=== PATIENT | male | born 1985 | race Caucasian/White ===

== ENCOUNTER 2022-10-26 22:47 | Inpatient (IN) ==
--- NOTE | 2022-10-26 23:26 | Emergency Department Note ---
Impression & Plan Suicidal ideation Admit to [facility] ED Provider Note NAME: HAYLEE RAMIREZ AGE: 36 SEX: M ARRIVES VIA: Walk-In INFORMANT: Patient ED PROVIDER(S): Marie Ma DO CHIEF COMPLAINT: Suicidal ideation PLAN: Disposition: Admit to [facility]. Condition: Fair MEDICAL DECISION MAKING: This is a 36-year-old male patient who presents to the emergency department with suicidal ideation. Patient is unsure whether or not he would spontaneously act on these thoughts. He states that he feels fed up. The patient was medically cleared here in the emergency department and met with the ED psychiatric case resolution specialist. He is willing to admit himself voluntarily. The patient was evaluated by staff from [facility] and they would accept him onto their unit. Triage Nursing notes reviewed and agree with them. Prior medical records reviewed including previous emergency department visits where he was medically cleared to go to the [facility] Vital Signs: reviewed and unremarkable Differential diagnosis: Suicidal ideation, mood disorder, thought disorder, drug abuse Diagnostics interpreted by me: Laboratory studies: See below HPI: 36/M arrives for evaluation of suicidal ideation. The patient describes being" fed up with life." Patient states that he has had a very stressful week he has not having intermittent thoughts of suicide and does not feel that he will not spontaneously act upon them. Although, he does not have an active plan. He has had previous mental health admissions to [facility] and at the [facility]. The patient stopped taking his medications shortly after discharge in April from [facility]. The patient has not had any alcohol for the past 2 and half years. He does use marijuana but states that his card recently. 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 HOME MEDICATIONS:None ALLERGIES:None VITALS:See Below PHYSICAL EXAMINATION: HEENT: Head - normocephalic and atraumatic. Pupils are equal, round, and reactive to light. Extraocular eye muscles are intact, and sclera are anicteric. Nose - moist nasal mucosa without discharge. Mouth - moist buccal mucosa. Oropharynx is nonerythematous and there is no tonsillar exudate or edema noted. Neck: Supple; no cervical lymphadenopathy Heart: Regular rate and rhythm. There is a normal S1 and S2 with no murmurs, clicks, or gallops appreciated. Lungs: Clear to auscultation bilaterally with no wheezes, rales, or rhonchi. Abdomen: Soft, completely nontender, nondistended, with good bowel sounds. There are no palpable pulsatile masses or hepatosplenomegaly. There is no guarding, rigidity, or rebound noted. Extremities: No evidence of cyanosis, clubbing, or edema. There are easily palpable peripheral pulses. Skin: warm and dry with good turgor and no rashes. Psych: The patient is tearful at times and appears depressed. He does admit to suicidal ideation with no specific plan. He denies homicidal ideation. ED COURSE: Times/Reassessments: 2300: Patient was evaluated in room A-5. A complete history and physical was performed. Laboratory studies were drawn as above. He was felt to be medically cleared. Patient was evaluated by the ED psychiatric case resolution specialist. He meets criteria for inpatient psychiatric care. He is voluntary. He was evaluated by staff from [facility] They will admit him to their unit. Marie Ma, DO Past Med/Surg History Medical History No pertinent past medical history Surgical History History of repair of laceration R eye region Social History Smoking Status: Unknown if ever smoked Preferred Language: Tajik Communication Ability: Effective Mercury Cracking Tester Required: No Beliefs That Will Affect Care: None Feels Safe at Home: Yes Gender Identity: Male Assistive Devices: None Allergies Allergies Allergy/AdvReac Type Severity Reaction Status Date / Time No Known Allergies Allergy Unverified 10/26/22 23:00 Home Meds Home Medications Medication Instructions Recorded Confirmed escitalopram oxalate 10 mg tablet 10 mg PO 1XD 10/26/22 10/26/22 Results & Data (ED) Vital Signs Vital Signs - 24 hr 10/26/22 22:48 Temperature 36.8 C Temperature Source Temporal Artery Scan Pulse Rate 67 Pulse Rhythm Regular Pulse Strength Normal Respiratory Rate 20 Respiratory Effort / Characteristics Non-Labored Spontaneous Respiratory Depth Normal Blood Pressure 127/88 Blood Pressure Mean 101 Blood Pressure Position Sitting Pulse Oximetry 96 Oxygen Delivery Method Room Air Sepsis Recent Fever Within 48 Hours No Sepsis New/Unexplained Change in Mental Status N/A Sepsis Action Taken by Nursing No Action Required Laboratory Data 10/26/22 23:11 10/26/22 23:11 Lab Results 10/26/22 10/26/22 10/26/22 Range/Units 23:00 23:07 23:11 WBC 8.45 (4.8-10.8) K/ul RBC 4.50 L (4.70-6.10) M/uL Hgb 14.9 (14.0-18.0) g/dl Hct 42.8 (42.0-52.0) % MCV 95.1 (80.0-100.0) fL MCH 33.1 (25.0-34.0) pg MCHC 34.8 (32.0-36.0) g/dL RDW Std Deviation 43.8 (36.4-46.3) fL RDW Coeff of Jocelyn 12.5 (11.5-14.5) % Plt Count 244 (130-400) K/uL MPV 11.2 (9.4-12.4) fL Immature Gran % (Auto) 0.2 % Neut % (Auto) 66.6 % Lymph % (Auto) 22.6 % Pepin % (Auto) 4.9 % Eos % (Auto) 5.3 % Baso % (Auto) 0.4 % Neut # (Auto) 5.63 (1.40-6.50) K/uL Lymph # (Auto) 1.91 (1.2-3.4) K/uL Pepin # (Auto) 0.41 (0.11-0.59) K/uL Eos # (Auto) 0.45 (0-0.50) K/uL Baso # (Auto) 0.03 (0-0.2) K/uL Immature Gran # (Auto) 0.02 (0.01-0.20) K/uL Sodium (136-145) mmol/L Potassium (3.5-5.1) mmol/L Chloride (98-107) mmol/L Carbon Dioxide (21-32) mmol/L Anion Gap (3-11) BUN (6-23) mg/dl Creatinine (0.6-1.4) mg/dl Est Cr Clr Drug Dosing ml/min Est GFR ( Amer) ml/min Est GFR (Non-Af Amer) ml/min BUN/Creatinine Ratio (10-20) Glucose (70-99(Fasting)) mg/dl Calcium (8.6-10.3) mg/dl Total Bilirubin (0.2-1.0) mg/dl AST (13-39) U/L ALT (7-52) U/L Alkaline Phosphatase (34-104) U/L Total Protein (6.0-8.3) gm/dl Albumin (3.4-5.0) gm/dl Globulin (2.5-4.0) gm/dl Albumin/Globulin Ratio (0.9-2) TSH (0.300-4.500) uIu/ml Urine Color Dark Yellow Urine Appearance Clear (Clear) Urine pH 5.5 (4.5-7.5) Ur Specific [place] 1.022 (1.000-1.030) Urine Protein Negative (Negative) Urine Glucose (UA) Negative (Negative) Urine Ketones Negative (Negative) Urine Blood Negative (Negative) Urine Nitrite Negative (Negative) Urine Bilirubin Negative (Negative) Urine Urobilinogen Negative (Negative) Ur Leukocyte Esterase Negative (Negative) Salicylates (3.0-30) mg/dl Urine Opiates Screen Neg (Neg) Ur Methadone, Qual Neg (Neg) Acetaminophen (10-30) ug/ml Urine Barbiturates Neg (Neg) Ur Phencyclidine (PCP) Neg (Neg) U Amphetamin/Meth Scrn Neg (Neg) MDMA (Ecstasy) Screen Neg (Neg) U Benzodiazepines Scrn Neg (Neg) Ur Cocaine Metabolite Neg (Neg) U Marijuana (THC) Screen Pos H (Neg) Ethyl Alcohol mg/dL (<10.0) mg/dl 10/26/22 10/26/22 10/26/22 Range/Units 23:11 23:11 23:11 WBC (4.8-10.8) K/ul RBC (4.70-6.10) M/uL Hgb (14.0-18.0) g/dl Hct (42.0-52.0) % MCV (80.0-100.0) fL MCH (25.0-34.0) pg MCHC (32.0-36.0) g/dL RDW Std Deviation (36.4-46.3) fL RDW Coeff of Jocelyn (11.5-14.5) % Plt Count (130-400) K/uL MPV (9.4-12.4) fL Immature Gran % (Auto) % Neut % (Auto) % Lymph % (Auto) % Pepin % (Auto) % Eos % (Auto) % Baso % (Auto) % Neut # (Auto) (1.40-6.50) K/uL Lymph # (Auto) (1.2-3.4) K/uL Pepin # (Auto) (0.11-0.59) K/uL Eos # (Auto) (0-0.50) K/uL Baso # (Auto) (0-0.2) K/uL Immature Gran # (Auto) (0.01-0.20) K/uL Sodium 137 (136-145) mmol/L Potassium 3.9 (3.5-5.1) mmol/L Chloride 107 (98-107) mmol/L Carbon Dioxide 23 (21-32) mmol/L Anion Gap 7 (3-11) BUN 20 (6-23) mg/dl Creatinine 0.76 (0.6-1.4) mg/dl Est Cr Clr Drug Dosing 138.1 ml/min Est GFR ( Amer) 134.1 ml/min Est GFR (Non-Af Amer) 115.7 ml/min BUN/Creatinine Ratio 26.3 H (10-20) Glucose 92 (70-99(Fasting)) mg/dl Calcium 9.4 (8.6-10.3) mg/dl Total Bilirubin 0.9 (0.2-1.0) mg/dl AST 18 (13-39) U/L ALT 15 (7-52) U/L Alkaline Phosphatase 60 (34-104) U/L Total Protein 7.0 (6.0-8.3) gm/dl Albumin 4.4 (3.4-5.0) gm/dl Globulin 2.6 (2.5-4.0) gm/dl Albumin/Globulin Ratio 1.7 (0.9-2) TSH 1.605 (0.300-4.500) uIu/ml Urine Color Urine Appearance (Clear) Urine pH (4.5-7.5) Ur Specific [place] (1.000-1.030) Urine Protein (Negative) Urine Glucose (UA) (Negative) Urine Ketones (Negative) Urine Blood (Negative) Urine Nitrite (Negative) Urine Bilirubin (Negative) Urine Urobilinogen (Negative) Ur Leukocyte Esterase (Negative) Salicylates < 3.0 L (3.0-30) mg/dl Urine Opiates Screen (Neg) Ur Methadone, Qual (Neg) Acetaminophen < 3 L (10-30) ug/ml Urine Barbiturates (Neg) Ur Phencyclidine (PCP) (Neg) U Amphetamin/Meth Scrn (Neg) MDMA (Ecstasy) Screen (Neg) U Benzodiazepines Scrn (Neg) Ur Cocaine Metabolite (Neg) U Marijuana (THC) Screen (Neg) Ethyl Alcohol mg/dL (<10.0) mg/dl 10/26/22 Range/Units 23:11 WBC (4.8-10.8) K/ul RBC (4.70-6.10) M/uL Hgb (14.0-18.0) g/dl Hct (42.0-52.0) % MCV (80.0-100.0) fL MCH (25.0-34.0) pg MCHC (32.0-36.0) g/dL RDW Std Deviation (36.4-46.3) fL RDW Coeff of Jocelyn (11.5-14.5) % Plt Count (130-400) K/uL MPV (9.4-12.4) fL Immature Gran % (Auto) % Neut % (Auto) % Lymph % (Auto) % Pepin % (Auto) % Eos % (Auto) % Baso % (Auto) % Neut # (Auto) (1.40-6.50) K/uL Lymph # (Auto) (1.2-3.4) K/uL Pepin # (Auto) (0.11-0.59) K/uL Eos # (Auto) (0-0.50) K/uL Baso # (Auto) (0-0.2) K/uL Immature Gran # (Auto) (0.01-0.20) K/uL Sodium (136-145) mmol/L Potassium (3.5-5.1) mmol/L Chloride (98-107) mmol/L Carbon Dioxide (21-32) mmol/L Anion Gap (3-11) BUN (6-23) mg/dl Creatinine (0.6-1.4) mg/dl Est Cr Clr Drug Dosing ml/min Est GFR ( Amer) ml/min Est GFR (Non-Af Amer) ml/min BUN/Creatinine Ratio (10-20) Glucose (70-99(Fasting)) mg/dl Calcium (8.6-10.3) mg/dl Total Bilirubin (0.2-1.0) mg/dl AST (13-39) U/L ALT (7-52) U/L Alkaline Phosphatase (34-104) U/L Total Protein (6.0-8.3) gm/dl Albumin (3.4-5.0) gm/dl Globulin (2.5-4.0) gm/dl Albumin/Globulin Ratio (0.9-2) TSH (0.300-4.500) uIu/ml Urine Color Urine Appearance (Clear) Urine pH (4.5-7.5) Ur Specific [place] (1.000-1.030) Urine Protein (Negative) Urine Glucose (UA) (Negative) Urine Ketones (Negative) Urine Blood (Negative) Urine Nitrite (Negative) Urine Bilirubin (Negative) Urine Urobilinogen (Negative) Ur Leukocyte Esterase (Negative) Salicylates (3.0-30) mg/dl Urine Opiates Screen (Neg) Ur Methadone, Qual (Neg) Acetaminophen (10-30) ug/ml Urine Barbiturates (Neg) Ur Phencyclidine (PCP) (Neg) U Amphetamin/Meth Scrn (Neg) MDMA (Ecstasy) Screen (Neg) U Benzodiazepines Scrn (Neg) Ur Cocaine Metabolite (Neg) U Marijuana (THC) Screen (Neg) Ethyl Alcohol mg/dL < 10.0 (<10.0) mg/dl Discharge Plan Visit Data Chief Complaint: Mental Health Evaluation Stated Complaint: MENTAL HEALTH EVAL ED Provider: Marie Ma Discharge Problem: Suicidal ideation Patient Disposition: Admitted As Inpatient Discharge Instructions Interventions: ED Discharge Assessment Last Done: 10/27/22 06:40
[2022-10-26 23:40] LABS: Appearance Urine Clear (Clear); Bilirubin Urine Negative (Negative); Blood Urine Negative (Negative); Color Urine Dark Yellow; Glucose Urine UA Negative (Negative); Ketones Urine Negative (Negative); Leukocyte Esterase Urine Negative (Negative); Nitrite Urine Negative (Negative); Protein Urine Negative (Negative); Specific Gravity Urine 1.022 (1.000-1.030); Urobilinogen Urine Negative (Negative); pH Urine 5.5 (4.5-7.5)
[2022-10-26 23:49] LABS: Albumin Globulin Ratio 1.7 (0.9-2); Albumin Level 4.4 gm/dl (3.4-5.0); BUN Creatinine Ratio 26.3 (10-20); Bilirubin,Total 0.9 mg/dl (0.2-1.0); Calcium 9.4 mg/dl (8.6-10.3); Creatinine Clr Calc Pharmacy 138.1 ml/min; Est GFR (African American) 134.1 ml/min; Est GFR (Non-African American) 115.7 ml/min; Globulin 2.6 gm/dl (2.5-4.0); Potassium 3.9 mmol/L (3.5-5.1)
[2022-10-26 23:53] LABS: Basophils # (auto) 0.03 K/uL (0-0.2); Basophils % (auto) 0.4 %; Eosinophils # (auto) 0.45 K/uL (0-0.50); Eosinophils % (auto) 5.3 %; Hematocrit (blood only) 42.8 % (42.0-52.0); Hemoglobin 14.9 g/dl (14.0-18.0); Immature Granulocytes # (auto) 0.02 K/uL (0.01-0.20); Immature Granulocytes % (auto) 0.2 %; Lymphocytes # (auto) 1.91 K/uL (1.2-3.4); Lymphocytes % (auto) 22.6 %; Mean Corpuscular Hemoglobin 33.1 pg (25.0-34.0); Mean Corpuscular Hgb Conc 34.8 g/dL (32.0-36.0); Mean Corpuscular Volume 95.1 fL (80.0-100.0); Mean Platelet Volume 11.2 fL (9.4-12.4); Monocytes # (auto) 0.41 K/uL (0.11-0.59); Monocytes % (auto) 4.9 %; Neutrophils # (auto) 5.63 K/uL (1.40-6.50); Neutrophils % (auto) 66.6 %; Platelet Count 244 K/uL (130-400); RDW Coefficient of Variation 12.5 % (11.5-14.5); RDW Standard Deviation 43.8 fL (36.4-46.3); White Blood Count 8.45 K/ul (4.8-10.8)
[2022-10-27 00:11] LABS: Acetaminophen < 3 ug/ml (10-30); Salicylate < 3.0 mg/dl (3.0-30)
[2022-10-27 00:19] LABS: Amphetamines+Metham, Urine Neg (Neg); Barbiturates, Urine Neg (Neg); Benzodiazepine, Urine Neg (Neg); Cocaine, Urine Neg (Neg); MDMA (Ecstacy), Urine Neg (Neg); Methadone, Urine Neg (Neg); Opiate, Urine Neg (Neg); Phencyclidine, Urine Neg (Neg)
[2022-10-27] MEDS ORDERED: hydrOXYzine HCl 25 MG TAB PO PRN ×2 (01:48)
[2022-10-27] MEDS ORDERED: ACETAMINOPHEN 325 MG TAB PO PRN (01:48)
[2022-10-27] MEDS ORDERED: MAGNESIUM HYDROXIDE SUSP 30 ML UDC PO PRN (01:48)
[2022-10-27] MEDS ORDERED: SODIUM CHLORIDE 0.65% NA SOLN 45 ML (OCEAN) PRN (01:48)
[2022-10-27] MEDS ORDERED: ALUMINUM/MAGNESIUM SUSP 30 ML UDC PO PRN (01:48)
[2022-10-27] MEDS ORDERED: BISMUTH SUBSALICYLATE LIQD 236 ML PO PRN (01:48)
[2022-10-27] MEDS ORDERED: traZODone HCL 50 MG TAB PO PRN (02:20)
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
[2022-10-27] MEDS: OLANZapine ZYDIS 5 MG ORALLY DIS. TAB PO PRN (20:32)
--- NOTE | 2022-10-28 09:41 | Psychiatric Progress Note ---
Date of Service October 28, 2022 Impression / Recommendations Impression 36 year old man with a history of alcohol use in sustained remission, anxiety, depression and possible bipolar disorder who was admitted for depression with SI with plans. Diagnostically consistent with unspecified depressive disorder with differential including MDD with prominent irritability versus bipolar affective disorder versus cannabis-induced mood symptoms versus intermittent explosive disorder versus post-TBI component to irritability/anger as well as likely BALJINDER. He is deemed in need of psychiatric hospitalization for diagnostic clarification, safety and stabilization, medication management and development of further coping skills. MNPR given irritability with recent legal charges due to this 10/28/2022: Reviewed Mood Disorder questionnaire and discussed results, consistent with history of episodes of suraj largely with irritability and likely for recent mixed episode prior to current depressive episode. Discussed medication treatment options in detail including [place], atypical antipsychotics, Depakote and augmentation with SSRIs/SNRIs/Wellbutrin. Discussed risks, benefits and alternatives. Patient would like to start and consented to Depakote ER for bipolar disorder with recent mixed episode. Reviewed side effects including but not limited to: liver failure, changes in blood count, tremor, GI symptoms and need for routine labwork including liver function, CBC and depakote level. Baseline labs of CBC with diff, LFTs, electrolytes, and weight were preformed and normal with exception of slightly decreased RBC but with normal Hgb and Hct. (1) Bipolar I disorder with depression: (2) Depressive disorder: (3) BALJINDER (generalized anxiety disorder): (4) Depression with suicidal ideation: Plan 10/28/2022: Start Depakote ER (per his preference for once daily dosing to increase adherence) 250mg with dinner. 10/27/2022: The patient was admitted to the [facility] ([facility]) on q15 min checks (behavioral with suicide precautions) for safety. The patient will participate in group, recreational, and milieu therapies and will be offered additional individual and family sessions as clinically appropriate. -Mood disorder questionnaire, then will explore medication options for mood stabilization vs unipolar depression and BALJINDER such as SSRI/SNRI trial versus Depakote or atypical antipsychotic -Olanzapine 5mg ODT BID prn for agitation Inventory Assets Strengths: working, willing to get treatment Needs: safety and stabilization, medication adjustment, additional coping skills, increased outpatient services Suicide Risk Level Suicide Risk Level: Moderate (q15 min suicide checks) (depression with SI with plan prior to admission but now denying SI, feels safe in the hospital, able to safety contract and agrees to let nursing/staff know should they develop plan, intent or feel unable to remain safe.) Suicide Risk Level Comments: Risk Factors Assessment Male: Yes : Yes Do You Have Access To A Gun?: No Health Problems: No Mental Health Diagnoses: Yes Previous Attempt: No Previous Psychiatric Hospitalization: Yes Protective Factors Assessment Responsible for Young Children: Yes Employed: Yes Interval History Identifying Information HAYLEE RAMIREZ is a 36-year-old M who currently lives in [place] with his girlfriend and three children (has shared custody), has a history of depression, alcohol use disorder in sustained remission and possible bipolar disorder, and was admitted on 10/27/22 01:48 on a 201 voluntary commitment for SI with plans. Chief Complaint "I'm alright". Review of Systems Sleep Information Total Hours of Sleep: 7 Sleep Comments: Meal Information Percent Meal Consumed - Breakfast: 0 Percent Meal Consumed - Lunch: 0 Percent Meal Consumed - Dinner: 0 Nutrition Comment: ate dinner late Subjective Subjective Patient was seen & assessed and interval progress reviewed with treatment team nursing and social work. He didn't eat any of his meals yesterday but late in the evening finally requested and ate late dinner. Reported racing thoughts and feeling "jumpy" and did receive prn dose of olanzapine which he found helpful. Declined all groups and declined to participate with completing social history. This morning still in bed, continues to have a lot of fatigue and depression. Reviewed mood disorder questionnaire and discussed medication options. In reviewing options he recalled prior medication trials of abilify, [place] and possibly Depakote. Physical Exam Psychiatric Orientation: alert and oriented x 3 Apperance: appropriately dressed and appropriately groomed Eye Contact: good eye contact Motor Behavior: no abnormal motor movements Speech: normal rate/rhythm/volume of speech Affect: + depressed affect and + constricted affect Mood: + depressed mood Thought Process: clear/coherent thought process and + circumstantial thought process Thought Content: reality based without delusions Suicidal Thoughts: denies suicidal thoughts, denies suicidal plan and denies suicidal intent Homicidal Thoughts: denies homicidal thoughts Hallucinations: no auditory hallucinations and no visual hallucinations Cognition: recent memory grossly intact, remote memory grossly intact, attention grossly intact and language grossly intact Estimated Intelligence: consistent with education level Insight: + limited insight Judgment: + limited judgement Vital Signs (Past 24 Hours) Last Vital Signs Temp 37.0 C 10/28/22 06:00 Pulse 76 10/28/22 06:00 Resp 16 10/28/22 06:00 BP 140/83 10/28/22 06:00 Pulse Ox 97 10/28/22 06:00 O2 Del Method Room Air 10/28/22 06:00 Results & Data ([facility]) Current Inpatient Medications Current Inpatient Medications: Current Inpatient Medications Acetaminophen (Acetaminophen 325 Mg Tab) 650 mg PO Q4H PRN PRN Reason: Headache or Minor Fever Stop: 11/26/22 01:47 Al Hydrox/Mg Hydrox/Simethicone (Aluminum/Magnesium Susp 30 Ml Udc) 30 ml PO Q4H PRN PRN Reason: GI Upset Stop: 11/26/22 01:47 Bismuth Subsalicylate (Bismuth Subsalicylate Liqd 236 Ml) 15 ml PO PRN PRN PRN Reason: Loose Stool Stop: 11/26/22 01:47 Hydroxyzine HCl (Hydroxyzine Hcl 25 Mg Tab) 50 mg PO HSZ PRN PRN Reason: Insomnia Stop: 11/26/22 01:47 Hydroxyzine HCl (Hydroxyzine Hcl 25 Mg Tab) 25 mg PO Q4H PRN PRN Reason: Anxiety Stop: 11/26/22 01:47 Last Admin: 10/27/22 19:41 Dose: 25 mg Magnesium Hydroxide (Magnesium Hydroxide Susp 30 Ml Udc) 30 ml PO DAILY PRN PRN Reason: Constipation Stop: 11/26/22 01:47 Olanzapine (Olanzapine Zydis 5 Mg Orally Dis. Tab) 5 mg PO BID PRN PRN Reason: Agitation Stop: 11/26/22 20:59 Last Admin: 10/27/22 20:32 Dose: 5 mg Sodium Chloride (Sodium Chloride 0.65% Na Soln 45 Ml ([place])) 1 - 2 sprays NA PRN PRN PRN Reason: Nasal Dryness/Congestion Stop: 11/26/22 01:47 Trazodone HCl (Trazodone Hcl 50 Mg Tab) 50 mg PO HS PRN PRN Reason: Insomnia Stop: 11/26/22 20:59 Mental Health & Subst Abuse Tx Therapist Name of Therapist: None Manager Mental Health Name of Manager Mental Health: None Post Discharge Appointments Primary Care Physician Name Of Family Doctor/PCP: Yoni Wolf Primary [facility] Contact Information Discharge Discharge Address: [facility] [place] [address]
[2022-10-28] MEDS ORDERED: DIVALPROEX EXTENDED RELEASE 250 MG TABCR PO SCH (17:15)
[2022-10-28] MEDS: OLANZapine ZYDIS 5 MG ORALLY DIS. TAB PO PRN (18:45)
[2022-10-29 05:38] LABS: Marijuana Quant, GCMS Urine 2342 ng/mL (<5)
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
== END 2022-10-29 11:16 | disposition home or self-care (01) | DRG 885 ==
LOC: ED 22:47 → 3S 10-27 01:48